=== PATIENT | male | born 1935 | race Caucasian/White ===

== ENCOUNTER 2017-09-08 11:31 | Emergency (ER) | payer OTHER ==
[~2017-09-08] VITALS: Ht 177.8 cm; Wt 97.5 kg
[2017-09-08 11:39] VITALS: BP 126/82
--- NOTE | 2017-09-08 11:46 | ED GENERAL ADULT ---
History of Present Illness General Chief Complaint: General Adult Stated Complaint: HX OF DEMENTIA, PT WAS FOUND WANDERING ON [address]HW[address] Source: patient, family, EMS Exam Limitations: no limitations Vital Signs & Intake/Output Vital Signs & Intake/Output Vital Signs Date Time Temp Pulse Resp B/P B/P Pulse O2 O2 Flow FiO2 Mean Ox Delivery Rate 09/08 1209 96 Room Air 09/08 1139 98.2 97 18 126/82 95 Room Air Allergies Coded Allergies: No Known Allergies (09/08/17) Triage Note: RECEIVED 82 YO MALE BIBA WITH HX OF ALZHEIMERS AND DEMENTIA. PT WAS F[place]ING ON [place] [address] AND STATE POLICE WERE CALLED WHO CALLED 911. PT'S WAS CALLED AND NOTIFIED WHO SAID SHE WILL COME TO [facility] AND PICK HIM UP. Triage Nurses Notes Reviewed? yes Onset: Abrupt Duration: day(s): (1), changing over time, continues in ED Timing: single episode today Injury Environment: home Severity: mild, moderate No Modifying Factors: none HPI: 82-year-old male with a history of dementia brought in by ambulance after being found walking [place] the side of the highway. Patient reports that he left his house APproximally 5 hours earlier to go for a walk. He states that he was heading home and didn't realize he was not allowed to walk on the highway. According to his family he was found 7 or 8 miles away from his house. He has never gotten lost like this before. He had recently gotten his license taken away and states he wanted to walk to a diner to have breakfast. The family reports that there is been no other acute change in his mental status at this time. In the emergency department he is at his baseline. He is on medication for dementia. He lives at home with his . Denies any difficulty walking, falls, chest pain, shortness of breath, unsteady gait, dizziness, lightheadedness, fever, nausea vomiting diarrhea or any other symptoms. (Hiro Campo) Past History Travel History Traveled to [place] past 21 day No Medical History Any Pertinent Medical History? see below for history Neurological: Alzheimer's disease, dementia EENT: NONE Cardiovascular: NONE Respiratory: NONE Gastrointestinal: NONE Hepatic: NONE Renal: NONE Musculoskeletal: NONE Psychiatric: NONE Endocrine: NONE Blood Disorders: NONE Cancer(s): NONE Surgical History Surgical History: non-contributory Psychosocial History What is your primary language Montenegrin Tobacco Use: Quit >30 days ago Family History Hx Contributory? No (Hiro Campo) Review of Systems Review of Systems Constitutional: Reports: no symptoms. EENTM: Reports: no symptoms. Respiratory: Reports: no symptoms. Cardiovascular: Reports: no symptoms. GI: Reports: no symptoms. Genitourinary: Reports: no symptoms. Musculoskeletal: Reports: no symptoms. Skin: Reports: no symptoms. Neurological/Psychological: Reports: see HPI, confusion, dementia. Hematologic/Endocrine: Reports: no symptoms. Immunologic/Allergic: Reports: no symptoms. All Other Systems: Reviewed and Negative (Hiro Campo) Physical Exam Physical Exam General Appearance: well developed/nourished, no apparent distress, alert, awake Head: atraumatic, normal appearance Eyes: Bilateral: normal appearance, PERRL, EOMI. Ears, Nose, Throat: normal pharynx, normal ENT inspection, hearing grossly normal Neck: normal inspection, supple, full range of motion Respiratory: normal breath sounds, chest non-tender, no respiratory distress, lungs clear Cardiovascular: regular rate/rhythm, normal peripheral pulses Peripheral Pulses: 2+ radial (R), 2+ radial (L) Gastrointestinal: soft, non-tender Back: normal inspection, normal range of motion, NO CVAT Extremities: normal inspection, normal range of motion, no edema Neurologic/Psych: no motor/sensory deficits, awake, alert, normal gait, patient is alert and oriented to person and place only Skin: intact, normal color, warm/dry Lymphatic: no anterior cervical colten Core Measures ACS in differential dx? No CVA/TIA Diagnosis: No Sepsis Present: No Sepsis Focused Exam Completed? No (Hiro Campo) Progress Differential Diagnoses I considered the following diagnoses in my evaluation of the patient: [Dementia, sepsis, medication side effect, delirium, intoxication] Plan of Care: Orders Procedure Date/time Status EKG 09/08 1136 Active Laboratory Tests 09/08/17 1136: Serum Alcohol Cancelled 09/08/17 1136: CBC w Diff Cancelled, WBC Cancelled, RBC Cancelled, Hgb Cancelled, Hct Cancelled , MCV Cancelled, MCH Cancelled, MCHC Cancelled, RDW Cancelled, Plt Count Cancelled, MPV Cancelled, Methadone Screen Cancelled, Barbiturate Screen Cancelled, Ur Phencyclidine Scrn Cancelled, Amphetamines Screen Cancelled, U Benzodiazepines Scrn Cancelled, Urine Cocaine Screen Cancelled, Urine Cannabis Screen Cancelled, Urine Color Cancelled, Urine Clarity Cancelled, Urine pH Cancelled, Ur Specific Sharon Cancelled, Urine Protein Cancelled, Urine Ketones Cancelled, Urine Nitrite Cancelled, Urine Bilirubin Cancelled, Urine Urobilinogen Cancelled, Ur Leukocyte Esterase Cancelled, Ur Microscopic Cancelled, Urine Hemoglobin Cancelled, Urine Glucose Cancelled Patient seen and evaluated. He was [place] [address] Patient states he does not realize he was not allowed to do this he states he is going for a walk. He was found 7 or 8 miles away from home. He is never done this before. He does have a history of dementia. According to his grandson who is at the bedside currently he is at his baseline mental status. Offered to do basic blood work and set patient up with either inpatient or home health aides however the family declines at this time they feel like he is safe to go home with his who will watch him. Discussed with patient and family about the dangers of allowing the patient to go out on his own he should not be allowed to walk unsupervised. He should have 24 7 supervision at home. Patient was given a list of resources for home health aides. He was instructed to follow-up with a primary care doctor for further evaluation and treatment. Return to the emergency department at a time with any concerns for placement into an inpatient facility. Case discussed with Dr. Bonner he agrees patient appears clinically and physically well. He agrees the plan family feels like he is safe to go home they agree with the plan Initial ED EKG: none (Hiro Campo) Departure Departure Disposition: HOME OR SELF CARE Condition: Stable Clinical Impression Primary Impression: Dementia Qualifiers: Dementia type: unspecified type Dementia behavioral disturbance: with behavioral disturbance Qualified Code: F03.91 - Unspecified dementia with behavioral disturbance Additional Instructions: Follow-up with YOUR primary care doctor to review all results of today's visit. Consider a home health aide. ENSure that there is someone with you at home 24 7. Return to the emergency department any time with any concerns. Departure Forms: Customer Survey General Discharge Information (Hiro Campo) Departure Comments I saw and personally evaluated the patient and I agree with the PAs evaluation. (Clemente DO,Berny L.) Critical Care Note Critical Care Note Critical Care Time: non-applicable ([facility],Hiro)
== END 2017-09-08 12:30 ==
LOC: ERH 11:31
DX: F03.90 Unspecified dementia, unspecified severity, without behavioral disturbance, psychotic disturbance, mood disturbance, and anxiety (principal)
CPT/HCPCS: 80307; G0480